=== PATIENT | female | born 1970 | race Caucasian/White ===

== ENCOUNTER → 2016-12-13 | Day surgery (SDC) | payer MEDICARE, MEDICAID ==
[~2016-12-13] VITALS: Ht 170.2 cm; Wt 76.8 kg
[~2016-12-13] MED LIST: *RESP: ALBUTEROL 2.5 MG/3 ML NEB (PRN) PERIprocedural Use ONLY NEB ONE; DO NOT ADM ANY ANTICOAGULANT DRUGS XX PRN; EPINEPHrine HCL (1:1000) 1 MG/ML VIAL OTHER ONE; FLUT1INH INH; INSULIN HUMAN REGULAR 1,000 UNITS/10 ML VIAL SQ PRN; IPRASOL INH; LACTATED RINGER'S 1000 ML IV SCH; METOPROLOL TARTRATE 25 MG TAB PO PRN; OMEP20TA PO; ONDANSETRON HCL 4 MG/2 ML VIAL IV PUSH ONE; PLAV75TA29 PO; PROPOFOL 200 MG/20 ML AMP IV ONE; SODIUM CHLORID 0.9% 500 ML IV SCH; SPIRCAP INH; [UNRECOGNIZED DRUG - CODE] IV
[2016-12-13 06:16] VITALS: BP 130/80; PULSE 60; RESP 20; TEMP 97.9; O2SAT 94
[2016-12-13 06:37] LABS: AUTOMATED NEUTROPHIL # 2.4 TH/MM3 (1.8-7.7); BASOPHIL # 0.2 TH/MM3 (0-0.2); BASOPHIL % 2.1 % (0.0-2.0); EOSINOPHIL # 0.4 TH/MM3 (0-0.4); EOSINOPHIL % 4.2 % (0.0-4.0); HEMATOCRIT 41.7 % (35.0-46.0); HEMO FLAGS DIFF FINAL; LYMPH % 55.9 % (9.0-44.0); LYMPHOCYTE # 4.7 TH/MM3 (1.0-4.8); MEAN CELL VOLUME 95.7 FL (80.0-100.0); MEAN CORPUSCULAR HEMOGLOBIN 32.7 PG (27.0-34.0); MEAN CORPUSCULAR HGB CONC 34.1 % (32.0-36.0); MONO % 8.9 % (0.0-8.0); NEUT % 28.9 % (16.0-70.0); PLATELET COUNT 380 TH/MM3 (150-450); RED BLOOD COUNT 4.36 MIL/MM3 (4.00-5.30); RED CELL DISTRIBUTION WIDTH 13.2 % (11.6-17.2); WHITE BLOOD COUNT 8.4 TH/MM3 (4.0-11.0)
[2016-12-13 06:51] LABS: PROTHROMBIN TIME - PATIENT 11.2 SEC (9.8-11.6)
--- NOTE | 2016-12-13 09:37 | MR ---
cc: JEREMIAS MCDOWELL M.D. DATE 12/13/2016 PROCEDURE NOTE Fiberoptic bronchoscopy flexible REASON FOR BRONCHOSCOPY Hemoptysis, lung nodules rule out underlying malignancy, chronic inflammatory process or other. PROCEDURE Fiberoptic bronchoscopy performed via LMA. Vocal cords visualized appeared intact. Trachea mildly hyperemic. Chloe sharp. Right mainstem bronchus, right upper, middle and lower lobe, left main bronchus, left upper lower lobes all inspected. Diffuse hyperemia with thick mucoid whitish yellowish secretion noted. All secretions removed. Washings were obtained from both sides of the tracheobronchial tree for routine TB and fungal cultures as well as cytological exam. Cytologic brush biopsies left lower lobe obtained for cytological exam which appeared more hyperemic than the rest of the tracheobronchial tree. The procedure well tolerated. The patient transferred to recovery in stable condition. IMPRESSION 1. Moderate tracheobronchitis 2. No active bleeding. 3. Samples obtained as above. 4. No endobronchial obstruction or mass lesion. 5. Procedure well tolerated. 6. The patient transferred to recovery in stable condition. Jeremias Mcdowell MD WWW/VIDA /9:09 AM /9:21 AM
[2016-12-13 09:45] VITALS: BP 135/81; PULSE 77; RESP 18; TEMP 96; O2SAT 94
--- NOTE | 2016-12-13 14:36 | EKG ---
Date Performed: 12/13/2016 Time Performed: 06:13:19 PTAGE: 46 years EKG: Sinus rhythm NORMAL ECG INTERPRETATION BASED ON A DEFAULT AGE OF 42 YEARS NO PREVIOUS TRACING DOCTOR: Michael Del Angel Interpretating Date/Time 12/13/2016 14:34:03
== END | disposition home or self-care (01) ==
LOC: HSDC 05:12
PROVIDERS: ATTEND Internal Medicine Sleep Medicine
DX: J40 Bronchitis, not specified as acute or chronic (principal); R91.8 Other nonspecific abnormal finding of lung field; B95.3 Streptococcus pneumoniae as the cause of diseases classified elsewhere; J44.9 Chronic obstructive pulmonary disease, unspecified; Z01.810 Encounter for preprocedural cardiovascular examination
CPT/HCPCS: 00520; 31622; 85025; 85610; 86403; 87015; 87070; 87102; 87116; 87186; 87205; 87206; 88112; 88305; 93005; 94664; J0171; J2405; J7120; J7613